=== PATIENT | female | born 1950 | race Caucasian/White ===

== ENCOUNTER 2017-02-24 07:47 | Outpatient (CLI) | payer MEDICARE ==
--- NOTE | 2017-02-24 10:10 | ULT ---
BILATERAL RENAL ULTRASOUND: HISTORY: Abnormality seen on recent MRI examination. COMPARISON: MRI lumbar spine 01/27/17. FINDINGS: The right kidney measures 11.8 x 4.6 x 6.1 cm and the left kidney measures 11.3 x 5.9 x 5.4 cm. In t he right kidney, there is no mass, hydronephrosis, or abnormal calcifications. There is possibly a hypodense focus of the medial cortex in the floor of the left kidney, although di fficult to fully evaluate. This measures 2 x 1.9 cm. This is questionable. Bladder wall thickness is normal. The prevoid urinary bladder is 127 mL and the postvoid is 1 mL. IMPRESSION: Possible interpolar hypodensity of the kidney, although is incompletely evaluated and may be artifact ual. Nonemergent renal protocol CT or MRI recommended. POS: [facility]
== END 2017-02-24 07:48 | disposition home or self-care (01) ==
LOC: NAV ULT 07:47
PROVIDERS: ATTEND Student in an Organized Health Care Education/Training Program
DX: R93.41 Abnormal radiologic findings on diagnostic imaging of renal pelvis, ureter, or bladder (principal)
CPT/HCPCS: 76770

== ENCOUNTER 2017-03-10 07:31 | Outpatient (CLI) | payer MEDICARE ==
--- NOTE | 2017-03-10 09:44 | CT ---
CT ABDOMEN NONCONTRAST CT PELVIS NONCONTRAST: (urolithiasis protocol) DATE: 03/10/17 HISTORY: 66-year-old female with possible left renal lesion found on lumbar spine MRI and possibly confirmed o n renal ultrasound. COMPARISON: Renal ultrasound of 02/24/17 and lumbar spine MRI of 01/27/17. No prior CTs. TECHNIQUE: IV injection of iodinated contrast media: none Oral contrast media: none FINDINGS: Other than for urolithiasis, the lack of IV and oral contrast limits the evaluation. The questionable lesion found on the prior studies would correspond to axial image 37 of 100, series 2, and coronal image 95 of 157, series 601, on this current noncontrast CT. Unfortunately, this regio n has attenuation that is identical to normal renal parenchyma, and therefore without IV contrast, it is not possible to determine, on this particular CT, whether this is a neoplasm or part of normal re nal parenchyma. There is no hydronephrosis. Incidentally, there is a tiny, faint, approximately 2 or 3 mm calcific de nsity in the parenchyma located medially at the right renal lower pole at or near a calyx. No calculu s in the left kidney. No hydroureteronephrosis. No ureteral or bladder calculus. Urinary bladder is d ecompressed. No signs of acute colonic diverticulitis. No small bowel dilation. Multiple diverticula throughout the descending colon, transverse colon, hepatic flexure, and a few in the sigmoid colon. N o free fluid or free air within the abdominal cavity or pelvic cavity. No abdominal aortic aneurysm. Within the limitations of noncontrast CT, no major pathology identified involving the right adrenal, liver, pancreas, or spleen. There is an incidental finding of a small, approximately 1 x 1 cm, left a drenal nodule, with density of 13 HU, nonspecific. IMPRESSION: 1. The question of whether or not there is a left renal mass cannot be resolved by this noncontrast CT. A renal protocol CT was previously recommended (multiphase CT of abdomen with and without contras t), but since a noncontrast CT was ordered, it is presumed that the patient has decreased GFR. If the patient does not have decreased GFR, then that renal mass protocol multiphase CT with and without co ntrast is again recommended. If the patient has decreased GFR but which is above 35, an MRI of the ki dneys with and without contrast is recommended. 2. Tiny right renal lower pole calcification. 3. Nonspecific tiny left adrenal nodule. 4. Extensive colonic diverticulosis without diverticulitis. MARY العراقي POS: [facility]
== END 2017-03-10 07:32 | disposition home or self-care (01) ==
LOC: NAV CT 07:31
PROVIDERS: ATTEND Family Medicine
DX: N28.89 Other specified disorders of kidney and ureter (principal); E27.8 Other specified disorders of adrenal gland; K57.30 Diverticulosis of large intestine without perforation or abscess without bleeding
CPT/HCPCS: 74176

== ENCOUNTER 2017-05-12 08:16 | Outpatient (CLI) | payer MEDICARE ==
[2017-05-12] MEDS ORDERED: Iopamidol 370 76% 100 ML VIAL ONE (09:00)
--- NOTE | 2017-05-12 12:00 | CT ---
CT ABDOMEN AND PELVIS WITH AND WITHOUT IV CONTRAST: Date: 05/12/17 HISTORY: Renal mass. FINDINGS: Correlation is made with the noncontrast exam of 03/10/17. The lung bases are clear. No calcified gallstones are seen. No free air, free fluid, or lymphadenopat hy noted in the abdomen or pelvis. There are vascular calcifications without evidence of aneurysmal d ilatation of the abdominal aorta. Degenerative changes are present in the spine. The liver, spleen, pancreas, and right adrenal gland appear normal. There is a 1.3 cm nodule in the l eft adrenal gland which is stable and has an attenuation value of 7.62 Hounsfield units on the noncon trasted images. There is a tiny calculus in the right kidney which is stable. No calculi seen in the left kidney, eit her ureter, or the urinary bladder. No hydroureteronephrosis is noted on either side. Postcontrast im ages demonstrate a tiny low density lesion in the right renal cortex, likely cyst. No enhancing mass is noted on either side. There is normal contrast excretion into the pelvicaliceal systems, ureters, or urinary bladder. IMPRESSION: 1. No evidence of enhancing renal mass. 2. Tiny, nonobstructing right renal calculus. 3. Tiny, low density region in right renal cortex, likely cyst. 4. Colonic diverticulosis. 5. Probable small left adrenal adenoma. POS: [facility]
== END 2017-05-12 08:17 | disposition home or self-care (01) ==
LOC: NAV CT 08:16
PROVIDERS: ATTEND Internal Medicine Hospice and Palliative Medicine
DX: N28.89 Other specified disorders of kidney and ureter (principal); N20.0 Calculus of kidney; K57.30 Diverticulosis of large intestine without perforation or abscess without bleeding
CPT/HCPCS: 74178

== ENCOUNTER 2020-05-25 10:24 | Emergency (ER) | payer MEDICARE ==
[2020-05-25] MEDS ORDERED: Acetaminophen 500 MG TAB ONE (10:53)
[2020-05-25] MEDS ORDERED: Boostrix 0.5 ML (Tdap) VIAL ONE (10:53)
== END 2020-05-25 12:10 | disposition home or self-care (01) ==
LOC: NAV ERS 10:24
DX: S00.03XA Contusion of scalp, initial encounter (principal); E11.9 Type 2 diabetes mellitus without complications; I10 Essential (primary) hypertension; E78.00 Pure hypercholesterolemia, unspecified; W19.XXXA Unspecified fall, initial encounter
CPT/HCPCS: 70450; 72125; 90471; 90715